=== PATIENT | male | born 1975 | race Caucasian/White ===

== ENCOUNTER 2017-02-22 10:04 | Inpatient (IN) | payer OTHER ==
[2017-02-22 12:07] VITALS: BMI 29.6
--- NOTE | 2017-02-22 13:40 | HP ---
CIWA Score - CIWA Score Nausea/Vomitin Muscle Tremors: 4-Moderate,w/Arms Extend Anxiety: 3 Agitation: 2 Paroxysmal Sweats: 3 Orientation: 0-Oriented Tacttile Disturbances: 2-Mild Itch/Numbness/Burn Auditory Disturbances: 0-None Visual Disturbances: 0-None Headache: 3-Moderate CIWA-Ar Total Score: 19 Admission ROS S - HPI Chief Complaint: "I need Detox for Alcohol." Pt. is here to Detox from Alcohol. Allergies/Adverse Reactions: Allergies Allergy/AdvReac Type Severity Reaction Status Date / Time No Known Allergies Allergy Verified 02/22/17 12:50 History of Present Illness: Pt. is a 41 YO male here to Detox from Alcohol. Pt. had 1 previous Detox admission at [facility] several years ago. Pt. is MMTP client at [facility]); 50 mg Daily, Last day Medicated: Yesterday, 02/21/2017. Exam Limitations: No Limitations - Ebola screening Have you traveled outside of the country in the last 21 days: No Have you had contact with anyone from an Ebola affected area: No Have you been sick,other than usual withdrawal symptoms: No Do you have a fever: No - Review of Systems Constitutional: Chills, Diaphoresis, Fever, Malaise, Night Sweats, Changes in sleep, Unintentional Wgt. Loss (Lost approx. 10 lbs. over the last week.) EENT: reports: Blurred Vision Respiratory: reports: No Symptoms reported Cardiac: reports: No Symptoms Reported GI: reports: Diarrhea, Nausea : reports: No Symptoms Reported Musculoskeletal: reports: No Symptoms Reported Integumentary: reports: Bruising (Right Forearm, Left Leg (medial to knee). Pt. unsure how each occurred.), Sweating Neuro: reports: Seizure (Last one - approx. 8 months ago.), Tremors Endocrine: reports: No Symptoms Reported Hematology: reports: Anemia (No meds.), Easy Bruising Psychiatric: reports: Judgement Intact, Mood/Affect Appropiate, Orientated x3, Anxious, Depressed Other Systems: Reviewed and Negative Patient History - Patient Medical History Hx Anemia: Yes (No meds.) Hx Asthma: No Hx Chronic Obstructive Pulmonary Disease (COPD): No Hx Cancer: No Hx Cardiac Disorders: No Hx Congestive Heart Failure: No Hx Hypertension: No Hx Hypercholesterolemia: No Hx Pacemaker: No HX Cerebrovascular Accident: No Hx Seizures: Yes (epileptic seizures-last episode was in 06/2016) Hx Dementia: No Hx Diabetes: No Hx Gastrointestinal Disorders: No Hx Liver Disease: Yes (Hep C (Diagnosed approx. 20 years ago.)) Hx Genitourinary Disorders: No Hx Sexually Transmitted Disorders: No Hx Renal Disease (ESRD): No Hx Thyroid Disease: No Hx Human Immunodeficiency Virus (HIV): No (Last Tested: approx. 1 year ago: NEGATIVE.) Hx Hepatitis C: Yes (Diagnosed approx. 20 years ago.) Hx Depression: Yes (On meds.) Hx Suicide Attempt: No (PATIENT DENIES CURRENT SI / HI.) Hx Bipolar Disorder: Yes (On meds.) Hx Schizophrenia: Yes (On meds.) - Patient Surgical History Past Surgical History: No Hx Neurologic Surgery: No Hx Cataract Extraction: No Hx Cardiac Surgery: No Hx Lung Surgery: No Hx Breast Surgery: No Hx Breast Biopsy: No Hx Abdominal Surgery: No Hx Appendectomy: No Hx Cholecystectomy: No Hx Genitourinary Surgery: No Hx Section: No Hx Orthopedic Surgery: No Anesthesia Reaction: No - PPD History Previous Implant?: Yes Documented Results: Negative w/o proof Implanted On Prior [facility] Admission?: No PPD to be Administered?: Yes - Reproductive History Patient is a Female of Child Bearing Age (11 -55 yrs old): No (PATIENT IS MALE.) - Smoking Cessation Smoking history: Current every day smoker Have you smoked in the past 12 months: Yes Aproximately how many cigarettes per day: 5 Cigars Per Day: 0 Hx Chewing Tobacco Use: No Initiated information on smoking cessation: Yes 'Breaking Loose' booklet given: 02/22/17 (GIVE ON UNIT.) - Substance & Tx. History Hx Alcohol Use: Yes Hx Substance Use: Yes Substance Use Type: Alcohol, Prescribed (MMTP.) Hx Substance Use Treatment: Yes (MMTP ([facility]). 1 Previous Detox admission at [facility].) - Substances Abused Alcohol-beer Route: Oral Frequency: Daily Amount used: 6-7 (24 oz.) Age of first use: 10 Date of Last Use: 02/22/17 Heroin Route: Injection Frequency: 1-3 times last 30 days Amount used: 2 Bags. Age of first use: 41 (Patient Reports 1-time use only.) Date of Last Use: 02/19/17 Family Disease History - Family Disease History Family Disease History: Diabetes: Grandparent, Heart Disease: Father ( - [place].), Other: Sister (Bipolar Disorder.) Admission Physical Exam [facility] - Vital Signs Vital Signs: Vital Signs - 24 hr 02/22/17 12:04 Temperature 97.4 F L Pulse Rate 100 H Respiratory 20 Rate Blood Pressure 121/84 - Physical General Appearance: Yes: No Apparent Distress, Tremorous, Sweating, Anxious HEENTM: Yes: Hearing grossly Normal, Normocephalic, Normal Voice, [place], Pharynx Normal Respiratory: Yes: Chest Non-Tender, Lungs Clear, No Respiratory Distress Neck: Yes: No masses,lesions,Nodules, Supple, Trachea in good position Breast: Yes: Breast Exam Deferred Cardiology: Yes: Regular Rhythm, Regular Rate, S1, S2 Abdominal: Yes: Normal Bowel Sounds, Non Tender, Flat, Soft Genitourinary: Yes: Within Normal Limits Back: Yes: Normal Inspection Musculoskeletal: Yes: full range of Motion, Gait Steady Extremities: Yes: Normal Range of Motion, Non-Tender, Tremors Neurological: Yes: Fully Oriented, Alert, Normal Mood/Affect, Normal Response Integumentary: Yes: Normal Color, Dry, Warm, Track [place] (Noted on Right forearm. Pt. reports that he injected Heroin X 1 approx. 3 days ago.) Lymphatic: Yes: Within Normal Limits - Diagnostic (1) Alcohol dependence with uncomplicated withdrawal Current Visit: Yes Status: Acute (2) Methadone maintenance therapy patient Current Visit: Yes Status: Chronic (3) Opioid dependence on agonist therapy Current Visit: Yes Status: Chronic (4) Nicotine dependence Current Visit: Yes Status: Chronic Qualifiers: Nicotine product type: cigarettes Substance use status: uncomplicated Qualified Code(s): F17.210 - Nicotine dependence, cigarettes, uncomplicated (5) History of schizophrenia Current Visit: Yes Status: Chronic (6) History of bipolar disorder Current Visit: Yes Status: Chronic (7) Hepatitis C Current Visit: Yes Status: Chronic Qualifiers: Viral hepatitis chronicity: chronic Hepatic coma status: without hepatic coma Qualified Code(s): B18.2 - Chronic viral hepatitis C (8) History of seizures Current Visit: Yes Status: Chronic Cleared for Admission [facility] - Detox or Rehab [facility] Level of Care: Medically Managed Detox Regimen/Protocol: Librium S Breath Alcohol Content Breath Alcohol Content: 0.106 Urine Drug Screen - Results Drug Screen Negative: No Urine Drug Screen Results: THC-Marijuana, BRETT-Cocaine, MTD-Methadone
[2017-02-22] MEDS ORDERED: ACETAMINOPHEN 325 MG TABLET (FP) PO PRN (14:34)
[2017-02-22] MEDS ORDERED: NICOTINE POLACRILEX 2 MG GUM BUC PRN (14:34)
[2017-02-22] MEDS ORDERED: MAGNESIUM CITRATE 300 ML BOTTLE PO PRN (14:34)
[2017-02-22] MEDS ORDERED: diphenhydrAMINE HCL 50 MG CAPSULE PO PRN (14:34)
[2017-02-22] MEDS ORDERED: MAGNESIUM HYDROX 2400MG/30ML ORAL SUSPENSION 30 ML CUP PO PRN (14:34)
[2017-02-22] MEDS ORDERED: IBUPROFEN 400 MG TABLET (FP) PO PRN (14:34)
[2017-02-22] MEDS ORDERED: hydrOXYzine PAMOATE 50 MG CAPSULE (FP) PO PRN (14:34)
[2017-02-22] MEDS ORDERED: LOPERAMIDE HCL 2 MG CAPSULE PO PRN (14:34)
[2017-02-22] MEDS ORDERED: MENTHOL/PHENOL 1 EACH UD MM PRN (14:34)
[2017-02-22] MEDS ORDERED: chlordiazePOXIDE HCL 25 MG CAPSULE PO PRN (14:34)
[2017-02-22] MEDS ORDERED: guaiFENesin/D-METHORPHAN HB 10 ML UNIT-DOSE CUPS PO PRN (14:34)
[2017-02-22] MEDS ORDERED: MAG HYDROX/AL HYDROX/SIMETH 30 ML UNIT-DOSE CUP PO PRN (14:34)
[2017-02-22] MEDS ORDERED: P-EPHED 60MG/TRIPROLIDI 2.5MG TABLET PO PRN (14:34)
[2017-02-22] MEDS ORDERED: chlordiazePOXIDE HCL 25 MG CAPSULE PO ONE (14:40)
[2017-02-22] MEDS ORDERED: METHADONE HCL 10 MG TABLET PO SCH (14:45)
[2017-02-22 16:20] LABS: URINE APPEARANCE CLEAR; URINE BILIRUBIN NEGATIVE (NEGATIVE); URINE BLOOD NEGATIVE (NEGATIVE); URINE COLOR YELLOW; URINE GLUCOSE (UA) NEGATIVE (NEGATIVE); URINE KETONE NEGATIVE (NEGATIVE); URINE LEUK ESTERASE NEGATIVE (NEGATIVE); URINE NITRITE NEGATIVE (NEGATIVE); URINE PROTEIN NEGATIVE (NEGATIVE); URINE UROBILINOGEN NEGATIVE E.U./dl (0.2-1.0)
[2017-02-22] MEDS ORDERED: METHADONE HCL 10 MG TABLET ONE (16:51)
[2017-02-22] MEDS ORDERED: METHADONE HCL 40 MG DISPERSABLE TABLET ONE (16:52)
[2017-02-22] MEDS: BACITRACIN 0.9 GM PACKET TP SCH (17:16)
[2017-02-22] MEDS: PHENYTOIN NA EXTENDED 100 MG CAPSULE (FP) PO SCH ×2 (17:17→22:35)
[2017-02-22] MEDS: chlordiazePOXIDE HCL 25 MG CAPSULE PO SCH ×2 (17:17→22:34)
[2017-02-22] MEDS: METHADONE 40 MG, METHADONE 10 MG PO SCH (17:18)
[2017-02-22] MEDS: NICOTINE 14 MG/24 HOURS TOPICAL PATCH TD SCH (17:51)
[2017-02-22] MEDS: THIAMINE HCL 100 MG TABLET (FP) PO SCH (22:37)
[2017-02-23] MEDS ORDERED: METHADONE HCL 10 MG TABLET ONE (05:25)
[2017-02-23] MEDS ORDERED: METHADONE HCL 40 MG DISPERSABLE TABLET ONE (05:26)
[2017-02-23] MEDS: chlordiazePOXIDE HCL 25 MG CAPSULE PO SCH ×4 (05:38→22:31)
[2017-02-23] MEDS: METHADONE 40 MG, METHADONE 10 MG PO SCH (05:39)
[2017-02-23] MEDS: PHENYTOIN NA EXTENDED 100 MG CAPSULE (FP) PO SCH ×3 (05:39→22:32)
[2017-02-23 09:55] LABS: MCH 30.1 pg (25.7-33.7); MEAN CELL VOLUME 91.1 fl (80-96); MEAN PLT VOLUME 9.3 fl (7.5-11.1); PLATELET COUNT 179 K/MM3 (134-434); RDW 14.6 % (11.9-15.9); WHITE BLOOD COUNT 7.3 K/mm3 (4.0-10.0)
[2017-02-23] MEDS: PRENATAL VITAMINS W/ FOLIC ACID TABLET (FP) PO SCH (10:25)
[2017-02-23] MEDS: BACITRACIN 0.9 GM PACKET TP SCH (10:25)
[2017-02-23] MEDS: NICOTINE 14 MG/24 HOURS TOPICAL PATCH TD SCH (10:25)
[2017-02-23 10:29] LABS: ALBUMIN 3.9 g/dl (3.4-5.0); ALK PHOS 106 U/L (45-117); ANION GAP 14 (8-16); BILIRUBIN,TOTAL 0.4 mg/dL (0.2-1.0); CALCIUM 8.7 mg/dL (8.5-10.1); CO2 22 mmol/L (21-32); COCKROFT - GAULT 135.96; CREATININE 0.8 mg/dL (0.7-1.3); GLUCOSE,RANDOM 154 mg/dL (74-106); SGOT/AST 84 U/L (15-37); SGPT/ALT 105 U/L (12-78); TOT PROT 7.8 g/dl (6.4-8.2)
[2017-02-23 10:40] LABS: INR 1.01 (0.82-1.09); PROTHROMBIN TIME (PATIENT) 11.1 SEC (9.98-11.88)
--- NOTE | 2017-02-23 11:13 | PN ---
[facility] CIWA - CIWA Score Nausea/Vomitin-No Nausea/No Vomiting Muscle Tremors: 4-Moderate,w/Arms Extend Anxiety: 4-Mod. Anxious/Guarded Agitation: 4-Moderately Restless Paroxysmal Sweats: 1-Minimal Palms Moist Orientation: 0-Oriented Tacttile Disturbances: 3-Moderate Itch/Numb/Burn Auditory Disturbances: 0-None Visual Disturbances: 0-None Headache: 0-None Present CIWA-Ar Total Score: 16 S Progress Note (SOAP) Subjective: ANXIETY,TREMORS, SWEAT, INTERMITTENT SLEEP. Objective: 02/23/17 11:14 Vital Signs Temperature 96 F L 02/23/17 10:25 Pulse Rate 80 02/23/17 10:25 Respiratory Rate 20 02/23/17 10:25 Blood Pressure 128/90 02/23/17 10:25 O2 Sat by Pulse Oximetry (%) Laboratory Last Values WBC 7.3 K/mm3 (4.0-10.0) 02/23/17 06:00 RBC 4.13 M/mm3 (4.00-5.60) 02/23/17 06:00 Hgb 12.4 GM/dL (11.7-16.9) 02/23/17 06:00 Hct 37.6 % (35.4-49) 02/23/17 06:00 MCV 91.1 fl (80-96) 02/23/17 06:00 MCHC 33.0 g/dl (32.0-35.9) 02/23/17 06:00 RDW 14.6 % (11.9-15.9) 02/23/17 06:00 Plt Count 179 K/MM3 (134-434) 02/23/17 06:00 MPV 9.3 fl (7.5-11.1) 02/23/17 06:00 INR 1.01 (0.82-1.09) 02/23/17 07:00 Sodium 136 mmol/L (136-145) 02/23/17 06:00 Potassium 4.0 mmol/L (3.5-5.1) 02/23/17 06:00 Chloride 100 mmol/L (98-107) 02/23/17 06:00 Carbon Dioxide 22 mmol/L (21-32) 02/23/17 06:00 Anion Gap 14 (8-16) 02/23/17 06:00 BUN 13 mg/dL (7-18) 02/23/17 06:00 Creatinine 0.8 mg/dL (0.7-1.3) 02/23/17 06:00 Creat Clearance w eGFR > 60 (>60) 02/23/17 06:00 Random Glucose 154 mg/dL (74-106) H 02/23/17 06:00 Calcium 8.7 mg/dL (8.5-10.1) 02/23/17 06:00 Total Bilirubin 0.4 mg/dL (0.2-1.0) 02/23/17 06:00 AST 84 U/L (15-37) H 02/23/17 06:00 ALT 105 U/L (12-78) H 02/23/17 06:00 Alkaline Phosphatase 106 U/L (45-117) 02/23/17 06:00 Total Protein 7.8 g/dl (6.4-8.2) 02/23/17 06:00 Albumin 3.9 g/dl (3.4-5.0) 02/23/17 06:00 Urine Color Yellow 02/22/17 15:00 Urine Appearance Clear 02/22/17 15:00 Urine pH 5.0 (5.0-8.0) 02/22/17 15:00 Ur Specific [place] 1.025 (1.005-1.025) 02/22/17 15:00 Urine Protein Negative (NEGATIVE) 02/22/17 15:00 Urine Glucose (UA) Negative (NEGATIVE) 02/22/17 15:00 Urine Ketones Negative (NEGATIVE) 02/22/17 15:00 Urine Blood Negative (NEGATIVE) 02/22/17 15:00 Urine Nitrite Negative (NEGATIVE) 02/22/17 15:00 Urine Bilirubin Negative (NEGATIVE) 02/22/17 15:00 Urine Urobilinogen Negative E.U./dl (0.2-1.0) 02/22/17 15:00 Ur Leukocyte Esterase Negative (NEGATIVE) 02/22/17 15:00 Phenytoin < 2.5 ug/ml (10.0-20.0) L 02/23/17 07:00 Assessment: 02/23/17 11:14 WITHDRAWAL SX Plan: CONTINUE DETOX
--- NOTE | 2017-02-23 11:40 | EKG ---
Test Reason : Blood Pressure : / mmHG Vent. Rate : 089 BPM Atrial Rate : 089 BPM P-R Int : 144 ms QRS Dur : 090 ms QT Int : 382 ms P-R-T Axes : 063 052 027 degrees QTc Int : 464 ms NORMAL SINUS RHYTHM WITH SINUS ARRHYTHMIA NORMAL ECG NO PREVIOUS ECGS AVAILABLE Confirmed by ZEESHAN CHACON MD ([id number]) on 02/23/2017 11:40:33 AM Referred By: Confirmed By:ZEESHAN CAHCON MD
--- NOTE | 2017-02-23 14:21 | CONSULT ---
[facility] Psychiatric Consult - Data Date of interview: 02/23/17 Admission source: [facility] Identifying data: Readmission to [facility] for this 41 y/o [place] male seeking detox treatment for heroin and alcohol dependence (Utox is found positive for cocaine and marijuana).Patient is single without children,domiciled ,unemployed and supported on SSI benefits. Substance Abuse History: - Smoking Cessation. Smoking history: Current every day smoker. Have you smoked in the past 12 months: Yes. Aproximately how many cigarettes per day: 5. Cigars Per Day: 0. Hx Chewing Tobacco Use: No. Initiated information on smoking cessation: Yes. 'Breaking Loose' booklet given : 02/22/17 (GIVE ON UNIT.). - Substance & Tx. History. Hx Alcohol Use: Yes. Hx Substance Use: Yes. Substance Use Type: Alcohol, Prescribed ([facility].). Hx Substance Use Treatment: Yes (MMTP ([facility]). 1 Previous Detox admission at [facility].). - Substances Abused. Alcohol-beer. Route: Oral. Frequency: Daily. Amount used: 6-7 (24 oz.). Age of first use: 10. Date of Last Use: 02/22/17. Heroin. Route: Injection. Frequency: 1-3 times last 30 days. Amount used: 2 Bags. Age of first use: 41 (Patient Reports 1-time use only.). Date of Last Use: 02/19/17. Confirmed by patient. Medical History: Anemia,withdrawal-related seizures and hepatitis C. Psychiatric History: Patient denies history of psychiatric hospitalizations.Diagnosed with Bipolar Disorder.Mr Kay is currently followed at the [facility] in [facility].Maintained on seroquel 50 mg/hs + zoloft 100 mg/day + gabapentin 400 mg po tid + buspar (dose not recalled).No reported history of suicide attempts. Physical/Sexual Abuse/Trauma History: Patient denies. Additional Comment: Urine Drug Screen Results: THC-Marijuana, BRETT-Cocaine, MTD- Methadone.Noted. Mental Status Exam - Mental Status Exam Alert and Oriented to: Time, Place, Person Cognitive Function: Good Patient Appearance: Well Groomed (covered with tattoos ; arms,forearms,wrists) Mood: Hopeful, Euthymic Affect: Appropriate, Normal Range Patient Behavior: Fatigued, Cooperative Speech Pattern: Clear Voice Loudness: Normal Thought Process: Goal Oriented Thought Disorder: Not Present Hallucinations: Denies Suicidal Ideation: Denies Homicidal Ideation: Denies Insight/Judgement: Poor Sleep: Fair Appetite: Good Muscle strength/Tone: Normal Gait/Station: Normal Psychiatric Findings - Problem List ([place] 1, 2,3) (1) Alcohol dependence with uncomplicated withdrawal Current Visit: Yes Status: Acute (2) Opioid dependence on agonist therapy Current Visit: Yes Status: Acute (3) Nicotine dependence Current Visit: Yes Status: Chronic Qualifiers: Nicotine product type: cigarettes Substance use status: uncomplicated Qualified Code(s): F17.210 - Nicotine dependence, cigarettes, uncomplicated (4) Cocaine abuse Current Visit: Yes Status: Acute (5) Marihuana abuse Current Visit: Yes Status: Acute (6) History of bipolar disorder Current Visit: Yes Status: Chronic (7) Hepatitis C Current Visit: Yes Status: Chronic Qualifiers: Viral hepatitis chronicity: chronic Hepatic coma status: without hepatic coma Qualified Code(s): B18.2 - Chronic viral hepatitis C (8) History of seizures Current Visit: Yes Status: Chronic - Initial Treatment Plan Initial Treatment Plan: Psychoeducation.Detoxification.Medications : seroquel 50 mg po daily + zoloft 50 mg po daily + buspar 15 mg po bid.Confirmed by review of pharmacy claims (scripts issued on 01/19/17 at [facility]).Side effects/benefits discussed with patient.He is in agreement with this careplan.Observation.
[2017-02-23] MEDS ORDERED: QUEtiapine FUMARATE 50 MG TABLET PO SCH (22:00)
[2017-02-23] MEDS: THIAMINE HCL 100 MG TABLET (FP) PO SCH (22:32)
[2017-02-24] MEDS ORDERED: CYCLOBENZAPRINE HCL 10 MG TABLET (FP) PO PRN (04:11)
[2017-02-24] MEDS: chlordiazePOXIDE HCL 25 MG CAPSULE PO SCH (05:24)
[2017-02-24] MEDS: PHENYTOIN NA EXTENDED 100 MG CAPSULE (FP) PO SCH (05:24)
[2017-02-24 06:55] VITALS: BP 124/85; PULSE 69; TEMP 98.9
[2017-02-24] MEDS ORDERED: METHADONE HCL 10 MG TABLET ONE (08:36)
[2017-02-24] MEDS ORDERED: METHADONE HCL 40 MG DISPERSABLE TABLET ONE (08:36)
[2017-02-24] MEDS: PRENATAL VITAMINS W/ FOLIC ACID TABLET (FP) PO SCH (09:57)
[2017-02-24] MEDS ORDERED: METHADONE 40 MG, METHADONE 10 MG PO SCH (10:00)
[2017-02-24] MEDS ORDERED: SERTRALINE HCL 50 MG TABLET (FP) PO SCH (10:00)
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
[2017-02-24] MEDS ORDERED: chlordiazePOXIDE 5 MG CAPSULE PO SCH (17:00)
[2017-02-25] MEDS ORDERED: chlordiazePOXIDE HCL 10 MG CAPSULE PO SCH (17:00)
== END 2017-02-24 10:08 | disposition home or self-care (01) | DRG 773 ==
LOC: YASAS 10:04 → Y3N 13:47
PROVIDERS: ADMIT Internal Medicine; ATTEND Internal Medicine
PROC: HZ2ZZZZ Detoxification Services for Substance Abuse Treatment (ICD-10-PCS; principal; 2017-02-24)
DX: F11.20 Opioid dependence, uncomplicated (principal); F10.230 Alcohol dependence with withdrawal, uncomplicated; F17.210 Nicotine dependence, cigarettes, uncomplicated; F14.10 Cocaine abuse, uncomplicated; F31.9 Bipolar disorder, unspecified; F20.9 Schizophrenia, unspecified; Z86.69 Personal history of other diseases of the nervous system and sense organs
CPT/HCPCS: 36415; 80053; 80185; 81003; 85027; 85610; 86593; 93005; 93010